=== PATIENT | male | born 1980 ===

== ENCOUNTER 2017-02-05 09:43 | Emergency (ER) | payer BC ==
[2017-02-05 11:07] LABS: Hematocrit 44 % (42-52); Hemoglobin 15.2 g/dl (14.0-18.0); Mean Corpuscular HGB Conc 35 g/dl (31-36); Mean Corpuscular Hemoglobin 32 pg (27-31); Mean Corpuscular Volume 93 fL (80-94); Mean Platelet Volume 9 um3 (7.4-10.4); Red Blood Count 4.75 10^6/ul (4.0-5.4); Red Cell Distribution Width 13 % (10.5-15); White Blood Count 5.5 10^3/ul (3.5-10.8)
[2017-02-05] MEDS ORDERED: Famotidine IV* 10 MG/ML 2 ML (20 mg) IV SLOW PU ONE (11:10)
[2017-02-05] MEDS ORDERED: Al Hydrox/Mg Hydrox/Simet LIQ* 30 ML UDC PO ONE (11:10)
[2017-02-05] MEDS ORDERED: NS 0.9% 1000 ML* 1,000 ML IV ONE (11:10)
[2017-02-05] MEDS ORDERED: Lidocaine 2% VISCOUS* 15 ML UDC PO ONE (11:10)
[2017-02-05] MEDS ORDERED: Ketorolac INJ* 30 MG/ML 1 ML VIAL IV PUSH ONE (11:11)
[2017-02-05 11:18] LABS: Albumin 4.7 g/dL (3.2-5.2); BUN/Creatinine Ratio 13.5 (8-20); Calcium 9.7 mg/dL (8.6-10.3); EGFR African American 115.3 (>60); EGFR Non-African American 89.7 (>60); Globulin 2.6 g/dL (2-4); Magnesium 2.2 mg/dL (1.9-2.7); Potassium 4.1 mmol/L (3.5-5.0); Total Bilirubin 0.7 mg/dL (0.2-1.0); Total Protein 7.3 g/dL (6.4-8.9)
--- NOTE | 2017-02-05 11:36 | RAD ---
Indication: Chest pain, shortness of breath. History of smoking. Comparison: July 08, 2016 CT abdomen Technique: Upright AP chest 1105 hours Report: Elevated lung volumes. No alveolar consolidation, focal pulmonary lesion, pleural effusion, pneumothorax. The heart, pulmonary vasculature, and mediastinal contours are unremarkable. IMPRESSION: Elevated lung volumes suggest presence of obstructive lung disease. No acute cardiopulmonary process evident.
[2017-02-05 13:07] VITALS: BP 126/75
--- NOTE | 2017-02-05 15:17 | ED ---
Luana Torres [place], scribed for Araseli Bowers MD on 02/05/17 at 1115 . HPI Chest Pain - HPI Summary HPI Summary: Patient is a 36 y/o male who presents to the ED with CP for one week. He reports CP is localized on the upper chest, but has been moving. Pain began on the left side and has spread across. He describes it as tightness and pressure and states it worsens as the day progresses. Pain is worse with movement of upper ext and direct palpation. No analgesia taken. He reports SOB over the last few days and intermittent left-sided abd pain, but denies nausea, cough, wheezing, hematuria, dysuria, or blood in the stool. He also reports he had a cold and was experiencing chest congestion. He then had a toothache and was taking Aleve for it. Pt states took aleve for several day prior to beginning of epigastric, chest pain. Pt states thought related to gastritis - delayed coming into the ED because he thought it was GERD. Pt claims to be on no medications and denies any allergies. Pt reports EtOH use as well, but states sx are unchanged by EtOH. He is here alone. - History of Current Complaint Chief Complaint: EDChestPainROMI Time Seen by Provider: 02/05/17 10:48 Hx Obtained From: Patient Onset/Duration: Started Days Ago, Still Present Timing: Constant - CP, Intermittent - Abd pain. Initial Severity: Moderate Current Severity: Moderate Pain Intensity: 5 Pain Scale Used: 0-10 Numeric Chest Pain Location: Upper Sternal Character: Tightness - and pressure. Aggravating Factor(s): Nothing Alleviating Factor(s): Nothing Associated Signs and Symptoms: Positive: Shortness of Breath, Abdominal Pain, Other: - No hematuria, dysuria, or blood in the stool.. Negative: Nausea, Cough , Wheezing - Allergy/Home Medications Allergies/Adverse Reactions: Allergies Allergy/AdvReac Type Severity Reaction Status Date / Time No Known Allergies Allergy Verified 07/08/16 13:43 PMH/Surg Hx/FS Hx/Imm Hx Previously Healthy: Yes Endocrine/Hematology History: Denies: Hx Diabetes Cardiovascular History: Denies: Hx Congestive Heart Failure, Hx Hypertension Infectious Disease History: No Infectious Disease History: Denies: Traveled Outside the [place] in Last 30 Days - Family History Known Family History: Negative: Cardiac Disease, Diabetes - Social History Alcohol Use: Daily Alcohol Amount: 4-5 beers Hx Substance Use: Yes Substance Use Type: Reports: Marijuana Smoking Status (MU): Heavy Every Day Tobacco Smoker - 1/2ppd. Review of Systems Constitutional: Negative Negative: Fever Eyes: Negative Positive: Other - dental pain #17 Cardiovascular: Negative Positive: Chest Pain Positive: Shortness Of Breath, Other - No wheezing.. Negative: Cough Positive: Abdominal Pain - Left-sided. Negative: Nausea Positive: other - No blood in stool. . Negative: dysuria, hematuria Skin: Negative Neurological: Negative Psychological: Normal All Other Systems Reviewed And Are Negative: Yes Physical Exam Triage Information Reviewed: Yes Vital Signs On Initial Exam: Initial Vitals Temp Pulse Resp BP Pulse Ox 97.5 F 111 16 149/95 100 02/05/17 09:49 02/05/17 09:49 02/05/17 09:49 02/05/17 09:49 02/05/17 09:49 Vital Signs Reviewed: Yes Appearance: Positive: Well-Appearing, No Pain Distress, Well-Nourished Skin: Positive: Warm, Skin Color Reflects Adequate Perfusion, Dry Head/Face: Positive: Normal Head/Face Inspection Eyes: Positive: Normal, EOMI, MARCELLA ENT: Positive: Normal ENT inspection, Pharynx normal, TMs normal Neck: Positive: Supple, Nontender, No Lymphadenopathy Respiratory/Lung Sounds: Positive: Clear to Auscultation, Breath Sounds Present. Negative: Stridor, Wheezes Cardiovascular: Positive: Normal, RRR, Other - + left anterior chest wall pain with direct palpation. Pain reproduced with ROM upper ext against resistance. Negative: Murmur Abdomen Description: Positive: No Organomegaly, Soft. Negative: Nontender - mild epigastric discomfort with direct palpation Bowel Sounds: Positive: Present Musculoskeletal: Positive: Normal, Strength/ROM Intact Neurological: Positive: Normal, Sensory/Motor Intact, Alert, Oriented to Person Place, Time, CN Intact II-III Psychiatric: Positive: Normal AVPU Assessment: Alert - Soper Coma Scale Best Eye Response: 4 - Spontaneous Best Motor Response: 6 - Obeys Commands Best Verbal Response: 5 - Oriented Coma Scale Total: 15 Diagnostics - Vital Signs Vital Signs Temp Pulse Resp BP Pulse Ox 02/05/17 10:27 97.5 F 81 16 132/82 97 02/05/17 09:49 97.5 F 111 16 149/95 100 - Laboratory Lab Results: Lab Results 02/05/17 Range/Units 10:20 WBC 5.5 (3.5-10.8) 10^3/ul RBC 4.75 (4.0-5.4) 10^6/ul Hgb 15.2 (14.0-18.0) g/dl Hct 44 (42-52) % MCV 93 (80-94) fL MCH 32 H (27-31) pg MCHC 35 (31-36) g/dl RDW 13 (10.5-15) % Plt Count 174 (150-450) 10^3/ul MPV 9 (7.4-10.4) um3 Neut % (Auto) 63.6 (38-83) % Lymph % (Auto) 25.2 (25-47) % Baker % (Auto) 7.0 (1-9) % Eos % (Auto) 3.2 (0-6) % Baso % (Auto) 1.0 (0-2) % Absolute Neuts (auto) 3.5 (1.5-7.7) 10^3/ul Absolute Lymphs (auto) 1.4 (1.0-4.8) 10^3/ul Absolute Monos (auto) 0.4 (0-0.8) 10^3/ul Absolute Eos (auto) 0.2 (0-0.6) 10^3/ul Absolute Basos (auto) 0.1 (0-0.2) 10^3/ul Absolute Nucleated RBC 0 10^3/ul Nucleated RBC % 0 Result Diagrams: 02/05/17 10:20 02/05/17 10:20 Lab Statement: Any lab studies that have been ordered have been reviewed, and results considered in the medical decision making process. - Radiology CXR Radiology Interpretation Completed By: Radiologist - IMPRESSION: Elevated lung volumes suggest presence of obstructive lung disease. No acute cardiopulmonary process evident. - EKG 0954 EKG Interpretation: Sinus at [address] T changes. Re-Evaluation - Re-Evaluation 1216 Change: Improved Comment: Reviewed labs with pt. Feeling better and can be discharged with abx for toothache. Chest Pain Course/Dx - Course Assessment/Plan: Pt presents with 7 days of upper left chest wall pain with radiation to right upper chest, mild nausea, and belching. Pt reports pain increased with direct palpation of chest wall. differential includes chest wall pain, pancreatitis, GERD. Very low suspcion for cardiac dx - will check trop/spk, low suspicioin for PE - will check d dimer. Will give pepcid, analgesia, GI cocktail reassess - Diagnoses Provider Diagnoses: GERD (gastroesophageal reflux disease), Chest wall pain Discharge - Discharge Plan Condition: Stable Disposition: HOME Prescriptions: Amoxicillin/Clavulanate TAB* [Augmentin TAB 875*] 875 mg PO BID #20 tab Famotidine TAB* [Pepcid 20 MG TAB*] 20 mg PO DAILY #30 tab Patient Education Materials: Gastritis (ED), Dental Caries (ED), Chest Wall Pain (ED) Forms: *Work Release Referrals: Ariana Guillen, [employer] [Primary Care Provider] - Additional Instructions: - Stay well hydrated - drink plenty of non-alcoholic, non-caffinated beverages - Take pepcid daily as prescribed. Okay to take maaox or tums for discomfort - Avoid excess aspirin, Aleve, motrin, ibuprofen, advil - work to decrease alcohol consumption -avoid spicy foods, acidic foods, tomato based foods -r ecommended you eat bland foods such as dry toast, crackers, scrambled eggs - take antibiotic as prescribe d- you have been given a dental referral list - Call your doctor to schedule a follow-up appointment. Call your doctor or return with questions or concerns The documentation as recorded by the Luana mercer Salem accurately reflects the service I personally performed and the decisions made by me, Araseli Bowers MD.
== END 2017-02-05 13:16 | disposition home or self-care (01) ==
LOC: ED 09:43
DX: K21.9 Gastro-esophageal reflux disease without esophagitis (principal); R07.89 Other chest pain; R06.02 Shortness of breath; R10.9 Unspecified abdominal pain; R30.0 Dysuria
CPT/HCPCS: 36415; 71010; 80053; 82550; 83690; 83735; 84484; 85025; 85379; 93005; 96374; 96375; 99283; A9270-GY; J1885